=== PATIENT | male | born 1995 | race Native Hawaiian/Other Pacific Islander ===

== ENCOUNTER 2018-04-08 17:00 | Emergency (ER) | payer OTHER, SELFPAY ==
[~2018-04-08] VITALS: Ht 175.3 cm; Wt 96.4 kg
[2018-04-08] MEDS ORDERED: NAPROXEN 250 MG TAB PO ONE (17:30)
[2018-04-08] MEDS ORDERED: NS 1,000 ML IV ONE (18:45)
[2018-04-08 19:22] LABS: BASO % 0.2 % (0.0-1.0); EOS % 0.1 % (0.0-3.0); HEMATOCRIT 42.9 % (42.0-52.0); HEMOGLOBIN 15.3 g/dl (13.5-17.5); LYMPH # 0.9 10^3/uL (1.5-6.5); LYMPH % 6.7 % (24.0-44.0); MEAN CORPUSCULAR HEMOGLOBIN 30.2 pg (27.0-33.0); MEAN CORPUSCULAR HGB CONC 35.7 g/dl (32.0-36.5); MEAN CORPUSCULAR VOLUME 84.8 fl (80.0-96.0); MONO # 1.1 10^3/uL (0.0-0.8); MONO % 8.3 % (0.0-5.0); NEUTROPHILS # 10.9 10^3/uL (1.8-7.7); NEUTROPHILS % 84.3 % (36.0-66.0); PLATELET COUNT, AUTOMATED 252 10^3/uL (150-450); RED BLOOD COUNT 5.06 10^6/uL (4.30-6.10); WHITE BLOOD COUNT 12.9 10^3/uL (4.0-10.0)
--- NOTE | 2018-04-08 19:40 | REP ---
CT abdomen and pelvis without IV or oral contrast: Renal stone protocol. History: Left flank pain. Evaluation for hydronephrosis or calculus. No comparison study. Findings: Preliminary digital scouts radiograph is unremarkable. The lung bases are clear on axial CT images. The liver and spleen are normal in size homogeneous in texture. Gallbladder and the pancreas are unremarkable. No adrenal lesion is seen on either side. A normal appendix is noted retrocecal. Small and large intestinal bowel loops are normal in the abdomen and pelvis. The left kidney is enlarged and shows mild to moderate hydronephrosis. There are is an intrarenal calculus in the upper pole of each kidney. The larger of these is on the right measuring 3 mm. There is a perinephric and periureteral edema on the left and the left-sided hydroureter is traced to the pelvis where there is an obstructive calculus in the ureterovesical junction. The calculus measures 4 mm in size. Prostate and seminal vesicles are unremarkable. No right ureteral stone is seen. No right-sided hydronephrosis is seen. Impression: 4 mm obstructive calculus in the ureterovesical junction on the left side with left-sided hydronephrosis and left renal swelling. There is an intrarenal calculus in the upper pole of each kidney, one on each side. Otherwise negative. Electronically Signed by Shawn Ibarra MD 04/08/2018 07:54 P
[2018-04-08 19:48] LABS: BLOOD UREA NITROGEN 20 MG/DL (7-18); CALCIUM LEVEL 8.7 MG/DL (8.5-10.1); CARBON DIOXIDE LEVEL 23 MEQ/L (21-32); CHLORIDE LEVEL 107 MEQ/L (98-107); CREATININE FOR GFR 1.53 MG/DL (0.70-1.30); GLOMERULAR FILTRATION RATE > 60.0 (>60); GLUCOSE, FASTING 114 MG/DL (70-100); SODIUM LEVEL 139 MEQ/L (136-145)
[2018-04-08 20:02] LABS: CHLAMYDIA DNA AMPLIFICATION NEGATIVE (NEGATIVE); GC DNA AMPLIFICATION NEGATIVE (NEGATIVE)
[2018-04-08] MEDS ORDERED: TAMSULOSIN 0.4 MG CAP PO ONE (20:30)
[2018-04-08] MEDS ORDERED: ZOFR4TAB16 PO (20:50)
[2018-04-08] MEDS ORDERED: FLOM0.4C39 PO (20:50)
[2018-04-08] MEDS ORDERED: PERC5TAB12 PO (20:50)
[2018-04-08 20:58] VITALS: BP 129/78
== END 2018-04-08 21:06 | disposition home or self-care (01) ==
LOC: M ED 17:00
DX: N20.1 Calculus of ureter (principal)